=== PATIENT | male | born 1975 | race Caucasian/White ===

== ENCOUNTER 2024-02-18 05:21 | Emergency (ER) | payer BC, OTHER ==
[~2024-02-18] VITALS: Ht 188 cm; Wt 122.5 kg
[2024-02-18 07:29] VITALS: BP 143/103; PULSE 72; RESP 17; TEMP 97.8; O2SAT 95
[2024-02-18] MEDS ORDERED: NAPR-746 PO (07:32)
[2024-02-18] MEDS ORDERED: METH4PAK PO (07:32)
== END 2024-02-18 08:15 | disposition home or self-care (01) ==
LOC: ER 05:21
DX: M77.11 Lateral epicondylitis, right elbow (principal); Z88.6 Allergy status to analgesic agent
CPT/HCPCS: 73080